=== PATIENT | female | born 1955 | race Caucasian/White ===

== ENCOUNTER 2024-02-08 12:19 | Outpatient (CLI) | payer OTHER | END 2024-02-08 12:26 | disposition home or self-care (01) | LOC: MAMO-SONO 12:19 | PROVIDERS: ATTEND Internal Medicine | DX: Z12.31 Encounter for screening mammogram for malignant neoplasm of breast (principal); Z12.39 Encounter for other screening for malignant neoplasm of breast ==

== ENCOUNTER → 2024-03-09 | Outpatient (CLI) | payer OTHER | END | disposition home or self-care (01) | LOC: SONOGRAMA 11:46 | PROVIDERS: ATTEND Obstetrics & Gynecology | DX: R10.2 Pelvic and perineal pain (principal) ==

== ENCOUNTER 2025-02-02 10:48 | Outpatient (CLI) | payer OTHER | END 2025-02-02 11:01 | disposition home or self-care (01) | LOC: TOM 10:48 | PROVIDERS: ATTEND Internal Medicine | DX: C54.1 Malignant neoplasm of endometrium (principal); M25.579 Pain in unspecified ankle and joints of unspecified foot | CPT/HCPCS: 71260; 73610; Q9965 ==

== ENCOUNTER 2025-05-04 09:54 | Outpatient (CLI) | payer OTHER | END 2025-05-04 10:07 | disposition home or self-care (01) | LOC: RAD 09:54 | PROVIDERS: ATTEND Orthopaedic Surgery | DX: M25.572 Pain in left ankle and joints of left foot (principal); M25.551 Pain in right hip; M25.552 Pain in left hip | CPT/HCPCS: 73721 ==

== ENCOUNTER 2025-07-18 10:59 | Outpatient (CLI) | payer OTHER | END 2025-07-18 11:00 | disposition home or self-care (01) | LOC: NUCLEAR 10:59 | PROVIDERS: ATTEND Physical Medicine & Rehabilitation | DX: I87.2 Venous insufficiency (chronic) (peripheral) (principal) ==

== ENCOUNTER 2025-08-11 23:02 | Emergency (ER) | payer OTHER ==
[~2025-08-11] VITALS: Ht 162.6 cm; Wt 78.9 kg
[2025-08-11] MEDS ORDERED: LIPITOR40 M1 PO (23:21)
[2025-08-11] MEDS ORDERED: TOPROL XL25 M1 PO (23:21)
[2025-08-11] MEDS ORDERED: CHILDREN'S ASPI81 MG PO (23:22)
[2025-08-12] MEDS ORDERED: 0.9 % SODIUM CHLORIDE 1,000 ML IV SCH (01:00)
[2025-08-12 01:52] LABS: BASO % 0.8 % (0.1-1.2); EOS # 0.11 (0.04-0.54); EOS % 1.3 % (0.7-7.0); LYMPH # 1.61 (1.18-3.74); LYMPH % 19.5 % (19.3-53.1); MEAN PLATELET VOLUME 10.10 fl (9.4-12.4); MONO # 0.45 (0.24-0.82); MONO % 5.5 % (4.7-12.5); NEUT # 5.97 (1.56-6.13); NEUT % 72.5 % (34.0-71.1); RED CELL DISTRIBUTION WIDTH 11.9 % (11.6-14.4)
[2025-08-12 02:19] LABS: ALT/SGPT 78.0 U/L (12-78); AST/SGOT 50.0 U/L (15-37); BILIRUBIN TOTAL 0.48 mg/dL (0.3-1.2); BUN CREA RATIO 17.0 (7.0-25.0); CREATININE SERUM 0.78 mg/dL (0.55-1.02); GFR 73.01; GLOBULINA 3.0 G/DL (2.4-3.5); GLUCOSE FASTING 97.0 mg/dL (65-100); LDH 219.0 U/L (84-246); OSMOLALITY SERUM 285.0 MOSM/KG (275-295); PHOSPHOKINASE CREATININE 176.0 U/L (26-192)
== END 2025-08-12 06:49 | disposition home or self-care (01) ==
LOC: ER 23:02
PROVIDERS: General Practice
DX: R55 Syncope and collapse (principal); R42 Dizziness and giddiness
CPT/HCPCS: 36415; 93005; 96365; 96366; 99282; J7030